=== PATIENT | female | born 1980 | race Caucasian/White ===

== ENCOUNTER 2019-08-02 17:50 | Emergency (ER) | payer OTHER ==
[~2019-08-02] VITALS: Ht 175.3 cm; Wt 60.0 kg
--- NOTE | 2019-08-02 18:12 | NUR ---
pt denies cervical spine point tenderness, has tenderness to her neck muscles
[2019-08-02 21:52] VITALS: BP 116/73
== END 2019-08-02 21:41 | disposition home or self-care (01) ==
LOC: ER 17:51
DX: S06.0X0A Concussion without loss of consciousness, initial encounter (principal); R11.2 Nausea with vomiting, unspecified; Z86.69 Personal history of other diseases of the nervous system and sense organs; W18.39XA Other fall on same level, initial encounter; Y93.89 Activity, other specified; Y92.89 Other specified places as the place of occurrence of the external cause; Y99.8 Other external cause status
CPT/HCPCS: 70450; 99284